=== PATIENT | female | born 1960 | race Caucasian/White ===

== ENCOUNTER 2018-05-13 10:42 | Emergency (ER) | payer SELFPAY ==
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
[2018-05-13] MEDS ORDERED: MULT-1335 PO (11:01)
[2018-05-13] MEDS ORDERED: ACETAMINOPHEN 500 MG TAB PO ONE (11:05)
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
[2018-05-13 12:00] VITALS: BP 111/84
--- NOTE | 2018-05-13 12:45 | EKG ---
[place] [facility] [place] NAME: MIREYA LAO : [id number] MR: [id number] V: [id number] EXAM DATE: ORDERING PHYSICIAN: ALPA BLAKE TECHNOLOGIST: CLARK Serrano Reason : Blood Pressure : / mmHG Vent. Rate : 082 BPM Atrial Rate : 082 BPM P-R Int : 144 ms QRS Dur : 084 ms QT Int : 362 ms P-R-T Axes : 034 054 044 degrees QTc Int : 422 ms Normal sinus rhythm Normal ECG When compared with ECG of 25-JAN-2016 17:47, No significant change was found Confirmed by NADIR MOREAU ([id number]) on 05/13/2018 10:21:27 PM Referred By: KAROLINA Confirmed By:NADIR MOREAU
== END 2018-05-13 12:05 | disposition home or self-care (01) ==
LOC: ER 11:19
DX: S20.219A Contusion of unspecified front wall of thorax, initial encounter (principal); V87.7XXA Person injured in collision between other specified motor vehicles (traffic), initial encounter
CPT/HCPCS: 71046; 81001; 93005; 99284

== ENCOUNTER → 2019-06-07 | Outpatient (CLI) | payer BC ==
[~2019-06-07] MED LIST: MULT-1335 PO
== END ==
LOC: RESP 01:44
PROVIDERS: ATTEND Nurse Practitioner Family
DX: J45.20 Mild intermittent asthma, uncomplicated (principal)
CPT/HCPCS: 94060; 94726; 94729